=== PATIENT | female | born 1985 | race Caucasian/White ===

== ENCOUNTER 2017-11-11 08:12 | Emergency (ER) | payer OTHER ==
[~2017-11-11] VITALS: Ht 170.2 cm; Wt 127.0 kg
[~2017-11-11 08:12] MED LIST: AMOXICILLIN 50500 M1 PO; BACTRIM DS TAB1 EACH PO; FLEXERIL PO; IBUPROFEN 600600 M1 PO; NOHOMEMEDICATIONS; NORCO 5-325 TA1 EACH PO; OSELB75 PO; PROMETHAZINE-C120 ML PO; TOBREX5 ML OPHTHALMIC; TRAMADOL 50 MG50 MG PO; ULTRAM 50MG TAB50 MG PO
[2017-11-11 09:25] LABS: URINE BILIRUBIN NEGATIVE (Negative); URINE BLOOD NEGATIVE (Negative); URINE CLARITY CLEAR; URINE COLOR YELLOW; URINE GLUCOSE-RANDOM* NEGATIVE (Negative); URINE KETONES NEGATIVE (Negative); URINE LEUKOCYTES TRACE (Negative); URINE NITRITE POSITIVE (Negative); URINE PROTEIN (DIPSTICK) NEGATIVE (Negative); URINE SPECIFIC GRAVITY 1.025 (1.005-1.035)
[2017-11-11 09:31] LABS: SQUAMOUS >10 Many /LPF (0-3)
[2017-11-11 09:32] LABS: BACTERIA >30 Many /HPF (None Seen); CASTS None Seen /LPF (None Seen); CRYSTALS None Seen /LPF (None Seen); URINE RBC 0-2 Rare /HPF (0-2); URINE WBC 6-15 Few /HPF (0-5)
[2017-11-11] MEDS ORDERED: TRAMADOL 50 MG50 MG PO (10:04)
[2017-11-11] MEDS ORDERED: BACTRIM DS TAB1 EACH PO (10:04)
== END 2017-11-11 10:05 | disposition home or self-care (01) ==
LOC: ER 08:12
PROVIDERS: Physician Assistant
DX: N39.0 Urinary tract infection, site not specified (principal)

== ENCOUNTER 2020-10-04 20:43 | Emergency (ER) | payer OTHER ==
[~2020-10-04] VITALS: Ht 170.2 cm; Wt 127.0 kg
[2020-10-04 23:40] LABS: ABSOLUTE NEUTROPHILS 5.3 thou/uL (1.4-8.2); BASOPHILS 0.2 % (0.0-2.0); HEMATOCRIT 36.9 % (37.0-47.0); MCH 25.9 pg (26.0-34.0); MCHC 32.6 g/dL (28.0-37.0); MCV 79.5 fL (80.0-100.0); PLATELET COUNT 267 thou/uL (150-400); POLYS 79.8 % (36.0-66.0); RBC 4.65 mil/uL (4.20-5.00); RDW 16.4 % (10.5-14.5); WBC 6.6 thou/uL (4.0-11.0)
[2020-10-04 23:44] LABS: ANION GAP 14 mmol/L (7-16); BUN 9 mg/dL (7-18); CALCIUM 8.2 mg/dL (8.5-10.1); CHLORIDE 102 mmol/L (98-107); CO2 23 mmol/L (21-32); CREATININE 0.6 mg/dL (0.6-1.0); GLUCOSE 100 mg/dL (74-106); POTASSIUM 3.7 mmol/L (3.5-5.1); SODIUM 139 mmol/L (136-145)
[2020-10-04 23:54] LABS: ALBUMIN 3.4 g/dL (3.4-5.0); SGOT 18 U/L (15-37); SGPT 26 U/L (30-65); TOTAL BILIRUBIN 0.3 mg/dL (0.2-1.0); TOTAL PROTEIN 8.1 g/dL (6.4-8.2); TROPONIN-I <0.06 ng/mL (<0.06)
[2020-10-05] MEDS ORDERED: TESSALON PERLE100 MG PO (00:23)
[2020-10-05] MEDS ORDERED: PREDNISONE 20 M20 MG PO (00:23)
[2020-10-05] MEDS ORDERED: DOXYCYCLINE 10100 MG PO (00:23)
[2020-10-05 01:02] VITALS: BP 149/82
--- NOTE | 2020-10-07 07:18 | EKG ---
[facility] [address] [place] [address] ELECTROCARDIOGRAM REPORT Name: RUDY SAM Room #: [facility] Oliveros#: [id number] Admission: 10/04/20 Attend Phys: Discharge: 10/05/20 Date of : 85 Report #: [id number] <ELECTRONICALLY SIGNED> By: Shaggy Ceballos MD, FACC 10/07/20 07 01 01 Shaggy Ceballos MD, FACC /EPI
== END 2020-10-05 01:15 | disposition home or self-care (01) ==
LOC: ER 20:43
PROVIDERS: Emergency Medicine
DX: U07.1 COVID-19 (principal); J12.89 Other viral pneumonia; Z90.49 Acquired absence of other specified parts of digestive tract